=== PATIENT | female | born 1990 | race Caucasian/White ===

== ENCOUNTER 2017-12-21 21:40 | Emergency (ER) | payer BC, OTHER ==
[2017-12-21 22:03] VITALS: BP 113/65
[2017-12-21] MEDS ORDERED: methylPREDNISolone Sodium Succinate 125 MG/2 ML SDV IM ONE (22:28)
[2017-12-21] MEDS ORDERED: diphenhydrAMINE 25 MG Cap PO ONE (22:28)
--- NOTE | 2017-12-21 22:42 | EDM.PDOC ---
ED HPI GENERAL MEDICAL PROBLEM - General Chief Complaint: Allergic Reaction Stated Complaint: allergic reaction Time Seen by Provider: 12/21/17 21:58 Source of Information: Reports: Patient History Limitations: Reports: No Limitations - History of Present Illness INITIAL COMMENTS - FREE TEXT/NARRATIVE: Patient presents with a feeling of swelling and tightness in her throat, tongue , and chest. This has been a life-long problem for her with angioedema most problematic during pollen season. She has been on Zyrtec, Cinthia and Ranitidine chronically and still has to go in to doctor 4-5 times during each allergy season. Because of this severe allergy problem her blanket winder helper in [place] elected to try Xolair injection which was done a week ago. She has had worse symptoms and has been in clinics and ERs nearly every day since then. She has had Solu-medrol 80mg and 100 mg last 5 and 3 days ago; she is currently taking Benadryl and prednisone 20 mg bid (initially 20 bid x 2 days, then 10 bid x 2 days then off, but when she went down to 10 mg her symptoms worsened so she was put back up to 20 mg bid this morning by Alphonse Arteaga, MAGALI) and ranitidine and was started on Xanax this morning at [facility] in [place]. The Solu-medrol helps but the reaction never goes away and today is worse. She has contacted her blanket winder helper's office, and he is out of the country until tomorrow; they have told her to go to the nearest ER. She is having trouble swallowing but is drinking water and protein drinks okay. She carries an epi-pen but doesn't want to have to use it. 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) - Related Data Allergies Allergy/AdvReac Type Severity Reaction Status Date / Time amoxicillin [From Augmentin] Allergy Cannot Verified 12/21/17 22:01 Remember cefaclor [From Ceclor] Allergy Cannot Verified 12/21/17 22:01 Remember ciprofloxacin Allergy Cannot Verified 12/21/17 22:01 Remember clavulanic acid Allergy Cannot Verified 12/21/17 22:01 [From Augmentin] Remember drospirenone [From VITA (28)] Allergy Hives Verified 12/21/17 22:01 erythromycin base Allergy Diarrhea Verified 12/21/17 22:01 ethinyl estradiol Allergy Hives Verified 12/21/17 22:01 [From VITA (28)] omalizumab [From Xolair] Allergy Airway Verified 12/21/17 22:01 Tightness Penicillins Allergy Cannot Verified 12/21/17 22:01 Remember Home Meds: Home Meds Aspirin/Acetaminophen/Caffeine [Extra Pain Relief Caplet] 1 tab PO Q4H PRN 06/06 [History] Ibuprofen 200 - 600 mg PO TID PRN 06/06/16 [History] Multivits,Ca,Minerals/Iron/FA [One-A-Day Women's] 1 tab PO DAILY 06/06/16 [ History] Polyvinyl Alcohol/Povidone/Pf [Refresh Classic Eye Drops] 1 drop EYEBOTH ASDIRECTED PRN 06/06/16 [History] Propylene Glycol/Peg 400 [Systane Liquid Gel Eye Drops] 1 - 2 drop EYEBOTH Q6H PRN 06/06/16 [History] Cetirizine [ZyrTEC] 10 mg PO DAILY 12/19/17 [History] EPINEPHrine [Epipen] 1 applic SUBCUT ONETIME PRN 12/19/17 [History] Fexofenadine [Cinthia] 180 mg PO DAILY 12/19/17 [History] Levonorgestrel-Ethin Estradiol [Aviane] 1 tab PO DAILY 12/19/17 [History] Montelukast Sodium [Singulair] 10 mg PO BEDTIME 12/19/17 [History] Ranitidine HCl [Zantac] 150 mg PO BID 12/19/17 [History] Past Medical History HEENT History: Reports: Glaucoma Cardiovascular History: Reports: None Respiratory History: Reports: None Gastrointestinal History: Reports: None Genitourinary History: Reports: None 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 immediate allergic reaction to xolair a week ago, and tried to taper off prednisone, with throat tightness and sore throat Hematologic History: Reports: None Other Hematologic History: Gets aggressive with anesthesia. Immunologic History: Reports: Other (See Below) (Chronic allergies) Oncologic (Cancer) History: Reports: None Dermatologic History: Reports: None - Infectious Disease History Infectious Disease History: Reports: None - Past Surgical History HEENT Surgical History: Reports: Laser Surgery, Other (See Below) Social & Family History - Family History Family Medical History: Noncontributory Endocrine/Metabolic: Reports: Hypothyroidism (Mother) - Caffeine Use Caffeine Use: Reports: Coffee ED ROS ALLERGIC REACTION - Review of Systems Review Of Systems: See Below Constitutional: Denies: Fever, Chills HEENT: Reports: Throat Swelling (the worst is a tight feeling along the anterolateral neck bilat) Respiratory: Reports: Shortness of Breath. Denies: Cough Cardiovascular: Denies: Syncope GI/Abdominal: Reports: Nausea (a little). Denies: Abdominal Pain, Diarrhea, Vomiting : Reports: No Symptoms Musculoskeletal: Reports: No Symptoms Skin: Reports: Other (chronic dermographic skin) Neurological: Denies: Confusion, Dizziness, Syncope, Weakness, Change in Speech Psychiatric: Reports: Anxiety. Denies: Agitation, Confusion ED EXAM GENERAL NO PERIP PULSE - Physical Exam Exam: See Below Exam Limited By: No Limitations General Appearance: Alert, WD/WN, Anxious Eye Exam: Bilateral Eye: EOMI, Normal Inspection, PERRL Ears: Normal External Exam, Hearing Grossly Normal Nose: Normal Inspection, No Blood Throat/Mouth: Normal Lips, Normal Teeth, Normal Gums, Normal Voice, No Airway Compromise, Other (tongue and oropharynx appears fairly normal but may have minor subtle swelling; difficult to quantify as may be normal baseline; discussed with Alphonse Arteaga who saw her this morning and had same conclusion.) Head: Atraumatic, Normocephalic Neck: Normal Inspection, Supple, Non-Tender, Full Range of Motion Respiratory/Chest: No Respiratory Distress, Lungs Clear, Normal Breath Sounds, No Accessory Muscle Use Cardiovascular: Regular Rate, Rhythm, No Murmur GI/Abdominal: No Distention Extremities: Normal Inspection, Normal Range of Motion Neurological: Alert, Oriented, Normal Cognition, No Motor/Sensory Deficits Psychiatric: Normal Affect, Anxious Skin Exam: Warm, Dry, Intact, Normal Color, No Rash Course - Vital Signs Last Recorded V/S: Last Vital Signs Temp 98.0 F 12/21/17 21:45 Pulse 87 12/21/17 21:45 Resp 20 12/21/17 21:45 BP 113/65 12/21/17 21:45 Pulse Ox 97 12/21/17 21:45 - Re-Assessments/Exams Free Text/Narrative Re-Assessment/Exam: 12/21/17 23:23 Follow solu-medrol and benadryl patient is feeling better. We discussed that peak effect of Xolair is 7-8 days which she is at now, and half-life is close to a month. Knowing this she will discuss options with the blanket winder helper for treatment in the coming weeks. We discussed expectations and she feels comfortable going home now. She is very frustrated with having to go to see a doctor 4 times in a week for a drug reaction. She is also frustrated with her chronic severe seasonal allergies and has discussed with her PCP going to [place] for further evaluation and treatment since the Xolair is obviously not working for her. Patient discharged to home in stable condition. Departure - Departure Time of Disposition: 23:21 Disposition: Home, Self-Care 01 Condition: Good Clinical Impression: Allergic reaction caused by a drug Qualifiers: Encounter type: subsequent encounter Qualified Code(s): T78.40XD - Allergy, unspecified, subsequent encounter - Discharge Information Additional Instructions: 1. Drink 8 cups of water daily. 2. Continue your medications as directed. 3. Call your blanket winder helper tomorrow morning and discuss the course of the last week and get his recommendation. 4. Carry your Epi-pen. 5. Return to ER as needed.
== END 2017-12-21 23:45 | disposition home or self-care (01) ==
LOC: KA.ED 21:40
DX: R07.0 Pain in throat (principal); R13.10 Dysphagia, unspecified; R07.89 Other chest pain; K14.9 Disease of tongue, unspecified; T48.6X5A Adverse effect of antiasthmatics, initial encounter; Z88.8 Allergy status to other drugs, medicaments and biological substances; Z88.0 Allergy status to penicillin; Z88.1 Allergy status to other antibiotic agents; Z79.82 Long term (current) use of aspirin; Z79.899 Other long term (current) drug therapy
CPT/HCPCS: 96374; 99283; 99284; A9270-GY; J2930